=== PATIENT | female | born 1985 | race Caucasian/White ===

== ENCOUNTER → 2017-02-02 | Outpatient (CLI) | payer BC ==
--- NOTE | 2017-02-02 14:17 | DI ---
LEFT ANKLE, 02/02/2017 9:06 AM: Clinical History: Left ankle pain. Previous Exam: None at this facility. 3 views are submitted. There is no acute soft tissue, osseous, or joint abnormality. There is an os t rigonum. Reading: Normal left ankle exam.
--- NOTE | 2017-02-02 14:18 | DI ---
LEFT FOOT, 02/02/2017 9:06 AM: Clinical History: Left foot pain. Previous Exam: None at this facility. 3 views are submitted. There is no acute soft tissue, osseous, or joint abnormality. There is an os n aviculare. Reading: Normal left foot exam.
== END ==
LOC: MOB RAD 10:11
PROVIDERS: ATTEND Physician Assistant
DX: M79.672 Pain in left foot (principal); M25.572 Pain in left ankle and joints of left foot
CPT/HCPCS: 73610; 73630

== ENCOUNTER → 2017-02-13 | Outpatient (CLI) | payer BC ==
--- NOTE | 2017-02-13 22:36 | DI ---
MRI LOW EXTREMITY JNT W/O CN,02/13/2017 2:02 PM: Clinical History: Fracture of the left ankle Previous Exam: February 02, 2017 Findings: Multiplanar MR images are obtained through the left foot without contrast, and demonstrate anatomic a lignment without fractures. The peroneal tendons are unremarkable. There are some cystic changes invo lving the left os navicularis articulation with the navicular bone. The spring ligament is unremarkable. There are some cystic changes involving the talonavicular joint as well. The Achilles tendon is unremarkable. No fractures are seen. Signal within the musculature is unremarkable. The subtalar joints are unremarkable. Impression: Os navicularis involving the left foot with some cystic changes at the joint. No fractures seen.
== END ==
LOC: MRI 13:55
PROVIDERS: ATTEND Podiatrist Foot & Ankle Surgery
DX: S82.892A Other fracture of left lower leg, initial encounter for closed fracture (principal)
CPT/HCPCS: 73721